=== PATIENT | female | born 1990 | race Caucasian/White ===

== ENCOUNTER 2017-02-12 14:12 | Emergency (ER) | payer MEDICAID ==
[~2017-02-12] VITALS: Ht 162.6 cm; Wt 88.5 kg
[2017-02-12 17:55] LABS: BASOPHIL % 0.1 % (0-2); PLATELET COUNT 227 x10^3mcL (130-400); RED CELL DISTRIBUTION WIDTH 12.4 % (11.5-14.5)
[2017-02-12 18:03] LABS: microscopic required? NO
[2017-02-12 18:08] LABS: CALCIUM 8.4 mg/dL (8.5-10.1); CARBON DIOXIDE 28.4 mmol/L (21-32); CHLORIDE SERUM 102 mmol/L (98-107); CREATININE SERUM 0.6 mg/dL (0.6-1.0); GFR1 > 60 mL/min; GLUCOSE SERUM 95 mg/dL (74-106); POTASSIUM SERUM 3.5 mmol/L (3.5-5.1); SODIUM SERUM 136 mmol/L (136-145)
[2017-02-12 18:11] LABS: UA SPECIFIC GRAVITY 1.015 (1.005-1.035); urine erythrocyte NEGATIVE (NEGATIVE)
[2017-02-12 18:23] LABS: FREE T4 0.86 ng/dL (0.76-1.46); FREE THYROXINE INDEX 2.3 ug/dL (1.4-4.5); T4(THYROXINE) 6.6 ug/dL (4.7-13.3)
[2017-02-12 18:40] LABS: ALBUMIN 3.7 g/dL (3.4-5.0); TOTAL PROTEIN, SERUM 7.5 g/dL (6.4-8.2)
[2017-02-12 18:41] LABS: ALKALINE PHOSPHATASE 75 U/L (46-116); ALT/SGPT 23 U/L (14-59); AST/SGOT 18 U/L (15-37); BILIRUBIN TOTAL 0.38 mg/dL (0.20-1.00); T3 TOTAL 0.92 ng/mL
[2017-02-12 18:52] LABS: HDL CHOLESTEROL 42 mg/dL (40-60); TRIGLYCERIDES 102 mg/dL (<150)
[2017-02-12 18:54] LABS: CHOLESTEROL 131 mg/dL (<200); CHOLESTEROL/HDL RATIO 3.1
[2017-02-12 19:02] LABS: LIPASE 124 IU/L (73-393)
[2017-02-12 21:27] VITALS: BP 116/65
== END 2017-02-12 21:27 | disposition home or self-care (01) ==
LOC: ED 14:12
PROVIDERS: Specialist
DX: R10.13 Epigastric pain (principal); E66.9 Obesity, unspecified
CPT/HCPCS: 83880; 84439; J1885; J7030; Q0092